=== PATIENT | female | born 2000 | race Caucasian/White ===

== ENCOUNTER 2019-09-28 11:15 | Emergency (ER) | payer MEDICAID ==
[2019-09-28] MEDS ORDERED: Ondansetron 4 MG Tab.DIS PO ONE ×2 (11:18→12:45)
--- NOTE | 2019-09-28 11:54 | EDM.PDOC ---
ED HPI GENERAL MEDICAL PROBLEM - General Chief Complaint: Gastrointestinal Problem Stated Complaint: VOMITING Time Seen by Provider: 09/28/19 11:40 Source of Information: Reports: Patient, Old Records, RN History Limitations: Reports: No Limitations - History of Present Illness INITIAL COMMENTS - FREE TEXT/NARRATIVE: 19 yo female presents with recurrent vomiting since about 0700h today. Did also have a little diarrhea. No fever or hematemesis. Is dizzy with standing. No known exposures. Throat mason some from vomiting. No hx of any abdominal surgeries. Onset: Today Onset Date: 09/28/19 Onset Time: 07:00 Duration: Hour(s):, Waxing/Waning Location: Reports: Abdomen Quality: Reports: Other (no pain reported) Severity: Moderate (nausea and vomiting) Improves with: Reports: Other (none) Worsens with: Reports: Other (oral intake) Context: Reports: Other (See HPI) Associated Symptoms: Reports: Nausea/Vomiting. 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) - Related Data Allergies Allergy/AdvReac Type Severity Reaction Status Date / Time No Known Allergies Allergy Verified 09/28/19 11:31 Home Meds: Home Meds NK [No Known Home Meds] 08/27/13 [History] Past Medical History - Past Health History Medical/Surgical History: Denies Medical/Surgical History Psychiatric History: Reports: Anxiety Social & Family History - Tobacco Use Smoking Status *Q: Current Every Day Smoker Years of Tobacco use: 5 Packs/Tins Daily: 0.5 - Recreational Drug Use Recreational Drug Use: No ED ROS GENERAL - Review of Systems Review Of Systems: See Below Constitutional: Reports: Malaise, Decreased Appetite HEENT: Reports: No Symptoms Respiratory: Reports: No Symptoms Cardiovascular: Reports: Lightheadedness Endocrine: Reports: No Symptoms GI/Abdominal: Reports: Diarrhea (minimal), Nausea, Vomiting. Denies: Abdominal Pain, Black Stool, Bloody Stool, Constipation, Distension, Flatus, Hematemesis, Hematochezia, Melena : Reports: No Symptoms Musculoskeletal: Reports: No Symptoms Skin: Reports: No Symptoms Neurological: Reports: No Symptoms ED EXAM, GI/ABD - Physical Exam Exam: See Below Exam Limited By: No Limitations General Appearance: Alert, WD/WN, No Apparent Distress Eyes: Bilateral: Normal Appearance Ears: Normal External Exam, Normal Canal, Hearing Grossly Normal, Normal TMs Nose: Normal Inspection, No Blood Throat/Mouth: Normal Inspection, Normal Lips, Normal Oropharynx, Normal Voice, No Airway Compromise Head: Atraumatic, Normocephalic Neck: Normal Inspection Respiratory/Chest: No Respiratory Distress, Lungs Clear, Normal Breath Sounds, No Accessory Muscle Use Cardiovascular: Regular Rate, Rhythm, No Edema GI/Abdominal Exam: Normal Bowel Sounds, Soft, Non-Tender, No Distention Back Exam: Normal Inspection. No: CVA Tenderness (R), CVA Tenderness (L) Extremities: Normal Inspection, Normal Range of Motion, Non-Tender, No Pedal Edema Neurological: Alert, Oriented, CN II-XII Intact, Normal Cognition, No Motor/ Sensory Deficits Psychiatric: Normal Affect, Normal Mood Skin Exam: Warm, Dry, Intact, Normal Color, No Rash Course - Vital Signs Last Recorded V/S: Last Vital Signs Temp 35.5 C L 09/28/19 11:32 Pulse 80 09/28/19 12:14 Resp 12 09/28/19 12:14 BP 138/82 09/28/19 12:14 Pulse Ox 96 09/28/19 12:14 Orthostatic Blood Pressure [ 116/89 Standing] Orthostatic Blood Pressure [ 95/74 Sitting] Orthostatic Blood Pressure [ 97/70 Supine] - Orders/Labs/Meds Orders: Active Orders 24 hr Category Date Time Status Orthostatic Vital Signs [RC] ASDIRECTED Care 09/28/19 11:49 Active Meds: Medications Discontinued Medications Generic Name Dose Route Start Last Admin Trade Name Joseq PRN Reason Stop Dose Admin Alprazolam 0.25 mg 09/28/19 12:07 09/28/19 12:12 Xanax PO 09/28/19 12:08 0.25 mg ONETIME ONE Administration Ondansetron HCl 4 mg 09/28/19 11:18 09/28/19 11:44 Zofran Odt PO 09/28/19 11:19 4 mg ONETIME ONE Administration Ondansetron HCl 4 mg 09/28/19 12:45 09/28/19 12:49 Zofran Odt PO 09/28/19 12:46 4 mg ONETIME ONE Administration - Re-Assessments/Exams Free Text/Narrative Re-Assessment/Exam: 09/28/19 13:23 Feeling much better after 2nd Zofran. Departure - Departure Time of Disposition: 13:30 Disposition: Home, Self-Care 01 Condition: Fair Clinical Impression: Nausea vomiting and diarrhea Clinical Impression: (Ruled Out): Nausea and vomiting - Discharge Information *PRESCRIPTION DRUG MONITORING PROGRAM REVIEWED*: Not Applicable *COPY OF PRESCRIPTION DRUG MONITORING REPORT IN PATIENT NELI: Not Applicable Instructions: Nausea and Vomiting, Adult Referrals: Shelby Cabrera PA [Primary Care Provider] - Forms: ED Department Discharge Additional Instructions: Use Zofran as directed for nausea control. Rest today. Sip on clear liquids and advance diet slowly as tolerated. Use loperamide as needed for diarrhea control. Recheck if worse. Sepsis Event Note - Evaluation Sepsis Screening Result: No Definite Risk - Focused Exam Vital Signs: Vital Signs Temp Pulse Resp BP Pulse Ox 09/28/19 12:14 80 12 138/82 96 09/28/19 11:32 35.5 C L 98 12 152/91 H 97 Date Exam was Performed: 09/28/19 Time Exam was Performed: 13:23 - My Orders Last 24 Hours: My Active Orders 09/28/19 11:49 Orthostatic Vital Signs [RC] ASDIRECTED - Assessment/Plan Last 24 Hours: My Active Orders 09/28/19 11:49 Orthostatic Vital Signs [RC] ASDIRECTED
[2019-09-28] MEDS ORDERED: ALPRAZolam 0.25 MG Tab PO ONE (12:07)
== END 2019-09-28 13:43 | disposition home or self-care (01) ==
LOC: JP.ED 11:15
DX: R11.2 Nausea with vomiting, unspecified (principal); R19.7 Diarrhea, unspecified; F17.210 Nicotine dependence, cigarettes, uncomplicated
CPT/HCPCS: 99283; A9270

== ENCOUNTER 2020-07-30 20:47 | Emergency (ER) | payer MEDICAID ==
[2020-07-30] MEDS ORDERED: diphenhydrAMINE 25 MG Cap PO ONE (21:18)
--- NOTE | 2020-07-30 21:24 | EDM.PDOC ---
ED HPI GENERAL MEDICAL PROBLEM - General Chief Complaint: Eye Problems Stated Complaint: SWOLLEN OD EYE Time Seen by Provider: 07/30/20 21:05 Source of Information: Reports: Patient, Old Records, RN History Limitations: Reports: No Limitations - History of Present Illness INITIAL COMMENTS - FREE TEXT/NARRATIVE: 20 yo female noted a little bit of R eyelid swelling today so came to the ER. No ocular discharge. No injury. Minimal vision change. Is slightly itchy. No self treatment. 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 Denies: Ear Pain, Eye Discharge, Eye Pain Respiratory: Reports: No Symptoms Cardiovascular: Reports: No Symptoms Skin: Reports: No Symptoms Neurological: Reports: No Symptoms ED EXAM GENERAL W FULL EYE - Physical Exam Exam: See Below Exam Limited By: No Limitations General Appearance: Alert, WD/WN, No Apparent Distress Eye Exam: Right Eye: Conjunctival Injection (mild), Bilateral Eye: PERRL Eyelids: Right: Erythema (upper lid medially and lower lid laterally), Lid Everted for Exam, Other (stye not clearly seen) Conjunctiva & Sclera: Right: Injected (subtle) Extraocular Movements: Bilateral: Intact Pupillary Size: Bilateral: 3 mm Ears: Normal External Exam, Normal Canal, Hearing Grossly Normal Nose: Normal Inspection Throat/Mouth: Normal Lips, Normal Voice, No Airway Compromise Head: Atraumatic, Normocephalic Course - Vital Signs Last Recorded V/S: Last Vital Signs Temp 36.5 C 07/30/20 21:15 Pulse 72 07/30/20 21:15 Resp 16 07/30/20 21:15 BP 133/79 07/30/20 21:15 Pulse Ox 97 07/30/20 21:15 - Orders/Labs/Meds Orders: Active Orders 24 hr Category Date Time Status diphenhydrAMINE [Benadryl] Med 07/30/20 21:18 Once 25 mg PO ONETIME ONE Departure - Departure Time of Disposition: 21:30 Disposition: Home, Self-Care 01 Condition: Good Clinical Impression: Eyelid inflammation - Discharge Information *PRESCRIPTION DRUG MONITORING PROGRAM REVIEWED*: Not Applicable *COPY OF PRESCRIPTION DRUG MONITORING REPORT IN PATIENT NELI: Not Applicable Referrals: PCP,None [Primary Care Provider] - Additional Instructions: Avoid rubbing your eye. Take diphenhydramine or cetirizine per package instructions for your itching. Warm, moist compresses several times daily. Apply erythromycin eye ointment as directed. Recheck next week if not improving. Sepsis Event Note (ED) - Evaluation Sepsis Screening Result: No Definite Risk - Focused Exam Vital Signs: Vital Signs Temp Pulse Resp BP Pulse Ox 07/30/20 21:15 36.5 C 72 16 133/79 97 - My Orders Last 24 Hours: My Active Orders 07/30/20 21:18 diphenhydrAMINE [Benadryl] 25 mg PO ONETIME ONE - Assessment/Plan Last 24 Hours: My Active Orders 07/30/20 21:18 diphenhydrAMINE [Benadryl] 25 mg PO ONETIME ONE
== END 2020-07-30 21:37 | disposition home or self-care (01) ==
LOC: JP.ED 20:47
DX: H01.9 Unspecified inflammation of eyelid (principal)
CPT/HCPCS: 99283; A9270-GY

== ENCOUNTER 2020-07-31 12:30 | Emergency (ER) | payer MEDICAID ==
[2020-07-31] MEDS ORDERED: Proparacaine 0.5% Ophth Soln 15 ML Bottle EYEBOTH STA (12:50)
--- NOTE | 2020-07-31 12:51 | EDM.PDOC ---
ED HPI GENERAL MEDICAL PROBLEM - General Chief Complaint: Eye Problems Stated Complaint: EYE STILL PAINFUL Time Seen by Provider: 07/31/20 12:49 Source of Information: Reports: Patient, Old Records, RN Notes Reviewed History Limitations: Reports: No Limitations - History of Present Illness INITIAL COMMENTS - FREE TEXT/NARRATIVE: 20-year-old female presents emergency department with a complaint of eye pain in the right eye, she was evaluated last night treated with topical antibiotics no foreign body was appreciated she states it still feels like there is something in there scratching her eye she does admit she uses a facial wash that has small round pellets no problems with vision - Related Data Allergies Allergy/AdvReac Type Severity Reaction Status Date / Time No Known Allergies Allergy Verified 07/31/20 12:35 Home Meds: Home Meds NK [No Known Home Meds] 07/31/20 [History] Past Medical History Psychiatric History: Reports: Anxiety - Past Surgical History Head Surgeries/Procedures: Reports: None Dermatological Surgical History: Reports: None Social & Family History - Tobacco Use Tobacco Use Status *Q: Current Every Day Tobacco User Years of Tobacco use: 1 Packs/Tins Daily: 0.5 Used Tobacco, but Quit: No Second Hand Smoke Exposure: No - Caffeine Use Caffeine Use: Reports: Coffee, Soda - Recreational Drug Use Recreational Drug Use: No ED ROS GENERAL - Review of Systems Review Of Systems: See Below HEENT: Reports: Eye Discharge, Eye Pain. Denies: Vision Change ED EXAM GENERAL W FULL EYE - Physical Exam Exam: See Below Exam Limited By: No Limitations General Appearance: Alert, WD/WN, No Apparent Distress Eye Exam: Bilateral Eye: EOMI, Normal Inspection, PERRL Visual Acuity (R) 20/: 15 Visual Acuity (L) 20/: 15 With Correction: No Eyelids: Bilateral: Normal Appearance Conjunctiva & Sclera: Right: Foreign Body, Injected, Left: Normal Appearance Cornea Exam: Right: Examined with Flourescein (No abrasions noted) Extraocular Movements: Bilateral: Intact Pupils: Normal Accommodation Pupillary Size: Bilateral: 4 mm Pupillary Reaction: Bilateral: Brisk Anterior Chamber: Bilateral: Normal Appearance Course - Vital Signs Last Recorded V/S: Last Vital Signs Temp 98.3 F 07/31/20 12:44 Pulse 105 H 07/31/20 12:44 Resp 16 01/09/21 12:44 BP 140/102 H 07/31/20 12:44 Pulse Ox 99 07/31/20 12:44 - Orders/Labs/Meds Meds: Medications Discontinued Medications Generic Name Dose Route Start Last Admin Trade Name Yaw PRN Reason Stop Dose Admin Proparacaine HCl 1 ml 07/31/20 12:50 07/31/20 12:53 Proparacaine 0.5% Ophth Soln EYEBOTH 07/31/20 12:51 1 ml NOW STA Administration Departure - Departure Time of Disposition: 13:03 Disposition: Home, Self-Care 01 Condition: Fair Clinical Impression: Foreign body of right eye Qualifiers: Encounter type: initial encounter Qualified Code(s): T15.91XA - Foreign body on external eye, part unspecified, right eye, initial encounter - Discharge Information Instructions: Eye Foreign Body, [id number] Referrals: Shelby Cabrera PA [Primary Care Provider] - Forms: ED Department Discharge Additional Instructions: Follow-up with your eye care provider on Sunday or Sunday of next week call return to the emergency department worsening of symptoms Sepsis Event Note (ED) - Evaluation Sepsis Screening Result: No Definite Risk - Focused Exam Vital Signs: Vital Signs Temp Pulse Resp BP Pulse Ox 07/31/20 12:44 98.3 F 105 H 16 140/102 H 99 07/31/20 12:40 98.3 F 105 H 16 140/102 H 99 - Assessment/Plan Plan: Assessment Acuity = acute Site and laterality = foreign body right thigh Etiology = facial wash Manifestations = none Location of injury = Home Lab values = none Plan Continue with antibiotics follow-up with eye care provider on Sunday or Sunday for reexamination, eye was flushed with copious amounts of saline per nursing staff This note was dictated using [employer] voice recognition software please call with any questions on syntax or grammar.
== END 2020-07-31 13:17 | disposition home or self-care (01) ==
LOC: JP.ED 12:30
DX: T15.91XA Foreign body on external eye, part unspecified, right eye, initial encounter (principal); F17.210 Nicotine dependence, cigarettes, uncomplicated
CPT/HCPCS: 99283; A9270-GY